=== PATIENT | female | born 2000 | race Hispanic/Latino ===

== ENCOUNTER 2024-05-09 23:28 | Day surgery (SDC) | payer OTHER ==
[2024-05-10] MEDS ORDERED: Acetaminophen 500 MG TAB PO PRN (00:18)
[2024-05-10 03:49] VITALS: BMI 35.3
== END 2024-05-10 03:45 | disposition home or self-care (01) ==
LOC: CSHLD/OP 23:28
PROVIDERS: ATTEND Obstetrics & Gynecology
DX: Z04.3 Encounter for examination and observation following other accident (principal); O47.03 False labor before 37 completed weeks of gestation, third trimester; Z79.899 Other long term (current) drug therapy; Z3A.36 36 weeks gestation of pregnancy
CPT/HCPCS: 99282